=== PATIENT | female | born 1975 | race Two or more races ===

== ENCOUNTER 2017-02-11 12:43 | Emergency (ER) | payer MEDICAID ==
[~2017-02-11] VITALS: Ht 154.9 cm; Wt 61.0 kg
[2017-02-11 16:25] LABS: CALCIUM 8.2 mg/dL (8.5-10.1); CARBON DIOXIDE 25.2 mmol/L (21-32); CHLORIDE SERUM 99 mmol/L (98-107); CREATININE SERUM 0.9 mg/dL (0.6-1.0); GFR1 > 60 mL/min; GLUCOSE SERUM 105 mg/dL (74-106); POTASSIUM SERUM 3.4 mmol/L (3.5-5.1); SODIUM SERUM 137 mmol/L (136-145)
[2017-02-11 16:28] LABS: PLATELET COUNT 283 x10^3mcL (130-400)
[2017-02-11 16:31] LABS: ALBUMIN 3.6 g/dL (3.4-5.0); ALKALINE PHOSPHATASE 78 U/L (46-116); ALT/SGPT 22 U/L (14-59); AMYLASE 52 U/L (25-115); AST/SGOT 21 U/L (15-37); BASOPHIL % 0 % (0-2); BILIRUBIN TOTAL 0.57 mg/dL (0.20-1.00); LIPASE 62 IU/L (73-393); TOTAL PROTEIN, SERUM 7.8 g/dL (6.4-8.2)
[2017-02-11 19:49] VITALS: BP 130/75
== END 2017-02-11 19:49 | disposition home or self-care (01) ==
LOC: ED 12:43
PROVIDERS: Emergency Medicine
DX: N93.8 Other specified abnormal uterine and vaginal bleeding (principal); D72.829 Elevated white blood cell count, unspecified; R19.7 Diarrhea, unspecified; Z79.1 Long term (current) use of non-steroidal anti-inflammatories (NSAID)
CPT/HCPCS: 83880; 87046; 87046-59; 87491; 87591; J0696; J1885; J2405; J3010; J7030

== ENCOUNTER 2017-02-12 17:29 | Emergency (ER) | payer SELFPAY ==
[~2017-02-12] VITALS: Ht 154.9 cm; Wt 79.2 kg
[2017-02-12 18:48] VITALS: BP 124/78
== END 2017-02-12 18:48 | disposition home or self-care (01) ==
LOC: ED 17:29
DX: R10.9 Unspecified abdominal pain (principal)